=== PATIENT | female | born 1980 | race Caucasian/White ===

== ENCOUNTER 2018-06-27 20:57 | Emergency (ER) | payer MEDICAID, SELFPAY ==
[2018-06-27 21:07] VITALS: BP 157/107; PULSE 86; RESP 20; TEMP 36.3; O2SAT 96
--- NOTE | 2018-06-27 21:24 | ED.GENADUL_ITS ---
Discharge Plan Disposition Patient Disposition: HOME Condition: Stable Discharge Details Chief Complaint: Nk/Back Pain Clinical Impression: Contusion of upper back, Lumbar contusion, Contusion of right tibia Primary Care Provider: Zachary Lara ED Provider: Mo Brown Home Meds and New Rx's Prescriptions: New diazepam [Valium] 5 mg tablet 5 mg PO BID-TID PRN (Reason: muscle spasm) Qty: 20 RF: 0 No Action methocarbamol 500 mg Tablet 1,000 mg PO QID RF: 0 albuterol sulfate 1.25 mg/3 mL Solution For Nebulization 1.25 mg INHALATION QID PRNRF: 0 quetiapine [Seroquel] 200 mg Tablet 200 mg PO QHS RF: 0 omeprazole 40 mg Capsule,Delayed Release(Dr/Ec) 40 mg PO DAILY RF: 0 quetiapine [Seroquel] 100 mg Tablet 100 mg PO DAILY AM RF: 0 triamcinolone acetonide 0.025 % Cream 1 applic topical PRN PRNRF: 0 lorazepam [Ativan] 2 mg Tablet 2 mg PO BID RF: 0 furosemide 20 mg Tablet 10 mg PO DAILY RF: 0 albuterol sulfate [Ventolin HFA] 90 mcg/actuation Hfa Aerosol Inhaler 2 puff INHALATION QID PRNRF: 0 haloperidol 2 mg Tablet 2 mg PO BID RF: 0 hydroxyzine HCl 10 mg Tablet 10 mg PO TID-QID PRNRF: 0 Flovent HFA 110 mcg/actuation Hfa Aerosol Inhaler 2 puff INHALATION BID RF: 0 levalbuterol tartrate [Xopenex HFA] 45 mcg/actuation Hfa Aerosol Inhaler 2 inh INHALATION Q6H PRNRF: 0 levothyroxine 75 mcg Capsule 75 mcg PO DAILY RF: 0 Discharge Instructions Instructions: Lower Back Exercises (ED), Upper Back Exercises (GEN) Additional Instructions: if pain continues in a week follow up with your primary care provider Medical Decision Making 37 yo female comes in after a fall. She was getting into a pool when she states the railing broke and she hit her right leg and lower back on the stairs. She has upper back pain with pain with deep breaths, lower left lateral lumbar pain and left antior tib fib pain with no signs of trauma. She did not hit her head or have loc and no n/v since, no abdominal pain or anterior chest pain. She has no pain in c spine even on rom, no stepoffs or palpable deformities. She has full rom of the ankle and knee and normal sensation. I suspect contusions but will image to eval for fx. She has no saddle anesthesia or other findings to suggest spinal cord injury at this time. xrays negative, no new symptoms, suspect contusion, will d/c home Differential Diagnosis contusion, sprain, fx Imaging Data Radiologic Study: Attestation: I personally reviewed and interpreted this imaging study as follows: Imaging: X-Ray Radiologist's impression: no acute findings on chest xray Radiologic Study #2: Attestation: I personally reviewed and interpreted this imaging study as follows: Imaging: X-Ray Radiologist's impression: no acute findings on tib fib xray Radiologic Study #3: Attestation: I personally reviewed and interpreted this imaging study as follows: Imaging: X-Ray Radiologist's impression: no acute findings on lumbar xray HPI General Mode of arrival: ambulatory . Date/Time Provider Initiated Documentation: 06/27/18 21:03 . Limitations to Documentation: no limitations . Information obtained by: patient . History of Present Illness 37 year old F presents to the emergency department with the chief complaint of back and leg pain, described as moderate, with intensity rated at 5. Quality is described as aching, and is localized to the back, right and lower extremity. Patient reports no radiation. Patient started experiencing this hour(s) (1) and it has been constant. No relieving factors improve symptom(s), No exacerbating factors reported . Patient did receive the following treatments prior to arrival, none Related Data Home Medications Medication Instructions Recorded Confirmed albuterol sulfate 1.25 mg INHALATION QID PRN 06/27/18 06/27/18 albuterol sulfate [Ventolin HFA] 2 puff INHALATION QID PRN 06/27/18 06/27/18 diazepam [Valium] 5 mg PO BID-TID PRN #20 tab 06/27/18 fluticasone [Flovent HFA] 2 puff INHALATION BID 06/27/18 06/27/18 furosemide 10 mg PO DAILY 06/27/18 06/27/18 haloperidol 2 mg PO BID 06/27/18 06/27/18 hydroxyzine HCl 10 mg PO TID-QID PRN 06/27/18 06/27/18 levalbuterol tartrate [Xopenex HFA] 2 inh INHALATION Q6H PRN 06/27/18 06/27/18 levothyroxine 75 mcg PO DAILY 06/27/18 06/27/18 lorazepam [Ativan] 2 mg PO BID 06/27/18 06/27/18 methocarbamol 1,000 mg PO QID 06/27/18 06/27/18 omeprazole 40 mg PO DAILY 06/27/18 06/27/18 quetiapine [Seroquel] 100 mg PO DAILY AM 06/27/18 06/27/18 quetiapine [Seroquel] 200 mg PO QHS 06/27/18 06/27/18 triamcinolone acetonide 1 applic TOPICAL PRN PRN 06/27/18 06/27/18 Previous Rx's Medication Instructions Recorded diazepam [Valium] 5 mg PO BID-TID PRN #20 tab 06/27/18 Allergies Allergy/AdvReac Type Severity Reaction Status Date / Time codeine Allergy Severe Anaphylaxsi Unverified 06/27/18 21:13 s Penicillins Allergy Severe Anaphylaxsi Unverified 06/27/18 21:13 s cephalexin Allergy Swelling/Ed Unverified 06/27/18 21:13 moriah ketorolac [From Toradol] Allergy Anaphylaxsi Unverified 06/27/18 21:13 s NSAIDS (Non-Steroidal Allergy Hives Unverified 06/27/18 21:13 Anti-Inflamma aspirin AdvReac Nausea Unverified 06/27/18 21:13 morphine AdvReac Itching Unverified 06/27/18 21:13 rofecoxib [From Vioxx] AdvReac Cardiac Unverified 06/27/18 21:13 Dysrythmia tramadol AdvReac Itching Unverified 06/27/18 21:13 Review of Systems Review of Systems All systems reviewed & are unremarkable except as noted in HPI and below Constitutional Denies chills, Denies fever(s) and Denies weakness ENT Denies change in voice Cardiovascular Denies chest pain Respiratory Denies cough Gastrointestinal Denies abdominal pain, Denies nausea and Denies vomiting Musculoskeletal Denies joint swelling Neurologic Denies weakness Exam Const General: no acute distress Orientation: alert HENMT Head: normal to inspection Ears: external ears normal General nose exam: external nose normal Mouth: moist mucous membranes Eyes General: appearance normal, both eyes and all related structures Neck Neck: normal visual inspection Resp Effort & Inspection: normal respiratory effort and able to speak in complete sentences Cardio Rate: regular rate Skin General skin exam: no rashes or lesions noted Neuro General: alert and oriented x3 Extrem General: normal to inspection Psych Mental Status: mental status grossly normal
[2018-06-27] MEDS: Diazepam 5 MG TAB PO (21:29)
--- NOTE | 2018-06-27 21:55 | DI.RAD_ITS ---
SYMPTOM/DIAGNOSIS: FELL, PAIN LUMBAR SPINE: AP, lateral and bilateral oblique views of the lumbar spine. There are no priors for comparison. There are five lumbar type vertebral bodies. No acute fracture or subluxations are seen. No spondylosis or spondylolisthesis is present. IMPRESSION: No acute abnormality. PA AND LATERAL CHEST: No priors. The heart is normal in size. The lungs are clear. The mediastinal structures and pleura appear intact. CONCLUSION: Normal chest. RIGHT TIB-FIB: Multiple views. No acute fracture or dislocation is identified.
--- NOTE | 2018-06-27 22:09 | DI.VRAD_ITS ---
EXAM: XR Right Tibia and Fibula, 2 Views EXAM DATE/TIME: 06/27/2018 9:20 PM CLINICAL HISTORY: 37 years old, female; Pain; Lower leg; Right; Patient HX: Fell getting out of pool. Pain and bruising anterior mid to lower leg TECHNIQUE: XR Right tibia and fibula 2 views COMPARISON: No relevant prior studies available. FINDINGS: Bones/joints: Typical for age. No evidence of acute fracture. Soft tissues: Unremarkable. IMPRESSION: No acute findings. Dictated and Authenticated by: Clark Keating MD. Ordering:BRAYDEN Hassan MD
--- NOTE | 2018-06-27 22:10 | DI.VRAD_ITS ---
EXAM: XR Chest, 2 Views EXAM DATE/TIME: 06/27/2018 10:00 PM CLINICAL HISTORY: 37 years old, female; Signs and symptoms; Other: Pain with breathing and back pain after fall; Patient HX: Fell getting out of pool, hit lower back tailbone and pain with breathing TECHNIQUE: XR of the chest, 2 views. COMPARISON: No relevant prior studies available. FINDINGS: Lungs: Unremarkable. No consolidation. Pleural space: Unremarkable. No evidence of pneumothorax. Heart/Mediastinum: Unremarkable. Heart size within normal limits for technique. Bones/joints: Unremarkable. IMPRESSION: No acute findings. Dictated and Authenticated by: Clark Keating MD. Ordering:BRAYDEN Hassan MD
--- NOTE | 2018-06-27 22:12 | DI.VRAD_ITS ---
EXAM: XR Lumbar Spine, 4 or 5 Views EXAM DATE/TIME: 06/27/2018 10:00 PM CLINICAL HISTORY: 37 years old, female; Pain; Low back pain; Patient HX: Fell getting out of pool. Low back pain and pain above tailbone TECHNIQUE: XR of the lumbar spine, 4 or 5 views. COMPARISON: No relevant prior studies available. FINDINGS: Vertebrae: Unremarkable for age. No acute fracture. Normal alignment. Vertebral Body Heights preserved. Soft tissues: Unremarkable. IMPRESSION: Unremarkable radiograph. Dictated and Authenticated by: Clark Keating MD. Ordering:BRAYDEN Hassan MD
== END 2018-06-27 23:00 | disposition home or self-care (01) ==
LOC: ER 23:16
PROVIDERS: Emergency Provider Emergency Medicine; PCP Family Medicine
DX: S20.221A Contusion of right back wall of thorax, initial encounter (principal); S30.0XXA Contusion of lower back and pelvis, initial encounter; W10.8XXA Fall (on) (from) other stairs and steps, initial encounter
CPT/HCPCS: 99284; 71046; 72110; 73590

== ENCOUNTER 2020-10-24 14:39 | Emergency (ER) | payer MEDICAID, SELFPAY ==
--- NOTE | 2020-10-24 14:54 | ED.GENADUL_ITS ---
Discharge Plan Disposition Patient Disposition: HOME Condition: Stable Discharge Details Clinical Impression: Acute sinusitis Primary Care Provider: Zachary Lara ED Provider: Lisa Pugh Home Meds and New Rx's Prescriptions: New doxycycline hyclate 100 mg tablet 100 mg PO BID 7 Days Qty: 14 RF: 0 methylprednisolone [Medrol (Ashu)] 4 mg tablets,dose pack See Rx Instructions .ROUTE .COMPLEX 7 Days RF: 0 Continued methocarbamol 500 mg Tablet 1,000 mg PO QID RF: 0 albuterol sulfate 1.25 mg/3 mL Solution For Nebulization 1.25 mg INHALATION QID PRNRF: 0 quetiapine [Seroquel] 200 mg Tablet 200 mg PO QHS RF: 0 omeprazole 40 mg Capsule,Delayed Release(Dr/Ec) 40 mg PO DAILY RF: 0 quetiapine [Seroquel] 100 mg Tablet 100 mg PO DAILY AM RF: 0 triamcinolone acetonide 0.025 % Cream 1 applic topical PRN PRNRF: 0 lorazepam [Ativan] 2 mg Tablet 2 mg PO BID RF: 0 furosemide 20 mg Tablet 10 mg PO DAILY RF: 0 albuterol sulfate [Ventolin HFA] 90 mcg/actuation Hfa Aerosol Inhaler 2 puff INHALATION QID PRNRF: 0 haloperidol 2 mg Tablet 2 mg PO BID RF: 0 hydroxyzine HCl 10 mg Tablet 10 mg PO TID-QID PRNRF: 0 Flovent HFA 110 mcg/actuation Hfa Aerosol Inhaler 2 puff INHALATION BID RF: 0 levalbuterol tartrate [Xopenex HFA] 45 mcg/actuation Hfa Aerosol Inhaler 2 inh INHALATION Q6H PRNRF: 0 levothyroxine 75 mcg Capsule 75 mcg PO DAILY RF: 0 diazepam [Valium] 5 mg tablet 5 mg PO BID-TID PRN (Reason: muscle spasm) Qty: 20 RF: 0 No Action ondansetron 4 mg Tablet,Disintegrating 4 mg PO PRN PRNRF: 0 triamcinolone-dimethicone 0.1-5 % Kit,Ointment And Cream 1 ea TOPICAL PRN PRNRF: 0 Discharge Instructions Instructions: Sinusitis (ED) Additional Instructions: Drink plenty of fluids and get plenty of rest. Alternate tylenol and motrin as needed and directed for pain. Take the antibiotics and steroids as directed until finished. Follow-up with your primary care doctor in 1 week. Return to the emergency department with any worsening or new concerning symptoms. Discharge Data Discharge Date/Time-TO BE ENTERED AT DEPARTURE: 10/24/20 16:48 Discharge Physician: Lisa Pugh Medical Decision Making 40-year-old female with multiple medical problems including PTSD, anxiety and depression on multiple psychiatric medications and chronic back pain on oxycodone presents with 10 days of sinus pain and pressure, green nasal discharge, fever. She also has mild ear pain and sore throat that's now improving. She appears comfortable and nontoxic. Vitals are within normal limits. Bilater al TMs dull. Oropharynx appears erythematous but no exudates. She has sinus tenderness throughout. Lungs clear. Appears most likely consistent with acute sinusitis. As she is a smoker and has complaint of fever with green nasal discharge, will cover for bacterial sinusitis with antibiotics. She requests a paper prescription which was given in addition to Medrol Dosepak. Advised to follow up with the primary care doctor for re-evaluation. Usual and customary return precautions given prior to discharge. Medical Records Medical records reviewed: Yes I reviewed the patient's medical records. HPI General Mode of arrival: ambulatory . Date/Time Provider Initiated Documentation: 10/24/20 14:40 . Limitations to Documentation: no limitations . Information obtained by: patient . HPI Narrative: Patient is a 40-year-old female with multiple medical problems including PTSD, anxiety and depression on Valium, Haldol, Ativan and Seroquel and a history of chronic back pain on oxycodone presents to the ED with a complaint of nasal congestion and runny nose, facial pain, sore throat and intermittent fevers for the past 10 days. She states her symptoms started after being exposed to another child with a cold 2 weeks ago. She states her symptoms initially started with ear pain and sore throat and now has concentrated in her sinuses. She states she has occasional clear or yellow nasal discharge. She states her ear pain and sore throat has improved. She states she had a temperature of 102 a few days ago but not since then. She denies any cough, chest pain, breath, neck pain. She states she has taken Mucinex and ibuprofen and Tylenol without relief. She states she takes children's ibuprofen and Tylenol due to concern for stomach upset and medication interactions. Related Data Home Medications Medication Instructions Recorded Confirmed Flovent HFA 2 puff INHALATION BID 06/27/18 10/24/20 albuterol sulfate 1.25 mg INHALATION QID PRN 06/27/18 10/24/20 albuterol sulfate [Ventolin HFA] 2 puff INHALATION QID PRN 06/27/18 10/24/20 diazepam [Valium] 5 mg PO BID-TID PRN #20 tab 06/27/18 10/24/20 furosemide 10 mg PO DAILY 06/27/18 10/24/20 haloperidol 2 mg PO BID 06/27/18 10/24/20 hydroxyzine HCl 10 mg PO TID-QID PRN 06/27/18 10/24/20 levalbuterol tartrate [Xopenex HFA] 2 inh INHALATION Q6H PRN 06/27/18 10/24/20 levothyroxine 75 mcg PO DAILY 06/27/18 10/24/20 lorazepam [Ativan] 2 mg PO BID 06/27/18 10/24/20 methocarbamol 1,000 mg PO QID 06/27/18 10/24/20 omeprazole 40 mg PO DAILY 06/27/18 10/24/20 quetiapine [Seroquel] 100 mg PO DAILY AM 06/27/18 10/24/20 quetiapine [Seroquel] 200 mg PO QHS 06/27/18 10/24/20 triamcinolone acetonide 1 applic TOPICAL PRN PRN 06/27/18 10/24/20 doxycycline hyclate 100 mg PO BID 7 Days #14 tab 10/24/20 methylprednisolone [Medrol (Ashu)] See Rx Instructions .ROUTE 10/24/20 .COMPLEX 7 Days dose pk ondansetron 4 mg PO PRN PRN 10/24/20 10/24/20 triamcinolone-dimethicone 1 ea TOPICAL PRN PRN 10/24/20 10/24/20 Previous Rx's Medication Instructions Recorded diazepam [Valium] 5 mg PO BID-TID PRN #20 tab 06/27/18 doxycycline hyclate 100 mg PO BID 7 Days #14 tab 10/24/20 methylprednisolone [Medrol (Ashu)] See Rx Instructions .ROUTE 10/24/20 .COMPLEX 7 Days dose pk Allergies Allergy/AdvReac Type Severity Reaction Status Date / Time codeine Allergy Severe Anaphylaxsi Unverified 06/27/18 21:13 s Penicillins Allergy Severe Anaphylaxsi Unverified 06/27/18 21:13 s cephalexin Allergy Swelling/Ed Unverified 06/27/18 21:13 moriah ketorolac [From Toradol] Allergy Anaphylaxsi Unverified 06/27/18 21:13 s NSAIDS (Non-Steroidal Allergy Hives Unverified 06/27/18 21:13 Anti-Inflamma acetaminophen [From NyQuil] AdvReac Unverified 10/24/20 16:11 amoxicillin AdvReac Unverified 10/24/20 16:11 aspirin AdvReac Nausea Unverified 06/27/18 21:13 ciprofloxacin [From Cipro] AdvReac Unverified 10/24/20 16:11 clindamycin AdvReac Unverified 10/24/20 16:11 dextromethorphan AdvReac Unverified 10/24/20 16:11 [From NyQuil] doxylamine [From NyQuil] AdvReac Unverified 10/24/20 16:11 latex AdvReac Unverified 10/24/20 16:11 morphine AdvReac Itching Unverified 06/27/18 21:13 pseudoephedrine [From NyQuil] AdvReac Unverified 10/24/20 16:11 rofecoxib [From Vioxx] AdvReac Cardiac Unverified 06/27/18 21:13 Dysrythmia Sulfa (Sulfonamide AdvReac Unverified 10/24/20 16:11 Antibiotics) tramadol AdvReac Itching Unverified 06/27/18 21:13 General Stated Complaint: RespSymp RUDDY: 4 Review of Systems All systems reviewed & are unremarkable except as noted in HPI and below Constitutional Constitutional: Reports as per HPI, Denies chills and Denies fever(s) Eyes Eyes: Denies blurry vision ENT Ears, Nose, Mouth, and Throat: Denies dizziness, Reports nasal congestion, Reports nasal discharge, Reports sinus pain, Reports sinus pressure, Reports sore throat and Denies throat swelling Cardiovascular Cardiovascular: Denies chest pain and Denies dyspnea Respiratory Respiratory: Denies cough and Denies dyspnea Gastrointestinal Gastrointestinal: Denies abdominal pain, Denies diarrhea and Denies vomiting Genitourinary Genitourinary: Denies hematuria and Denies dysuria Musculoskeletal Musculoskeletal: Denies back pain and Denies numbness Integumentary/Breasts Skin/Breast: Denies lesions and Denies rash Neurologic Neurologic: Denies dizziness, Denies localized weakness and Denies numbness Allergic/Immunologic Allergic/Immunologic: Denies throat swelling PFS Medical History (Updated 10/24/20 @ 16:14 by Lisa Pugh DO) Anxiety Chronic back pain Depression PTSD (post-traumatic stress disorder) Surgical History (Updated 10/24/20 @ 15:35 by Lisa Pugh DO) History of carpal tunnel release History of hysterectomy Social History Smoking/Tobacco Use Status: Never Smoking risk assessment performed?: Yes Alcohol Intake: never Drug use: Never Do you feel safe at home: Yes Exam Const General: cooperative and no acute distress HENMT Head: normal to inspection Ears: hearing grossly normal bilaterally, external ears normal and TM abnormal dull bilaterally Face and sinus: normal facial exam and sinus tenderness frontal (left) and maxillary (b/l ) Mouth: oral mucosae normal Throat: uvula midline, no peritonsillar masses and posterior oropharynx abnormal erythema; no exudates Eyes General: appearance normal, both eyes and all related structures EOM: EOM intact bilaterally Neck Neck: normal visual inspection and No submandibular swelling Lymphatic: no lymphadenopathy noted Chest Chest: normal inspection of the chest and no tenderness Resp Effort & Inspection: normal respiratory effort and able to speak in complete sentences Auscultation: clear to auscultation bilaterally Cardio Rate: regular rate Rhythm: regular rhythm GI Inspection: normal to inspection Palpation: soft, not firm, not rigid and nontender Auscultation: normal bowel sounds Skin General skin exam: no rashes or lesions noted Neuro General: patient alert, patient awake, patient oriented x3, moves all extremities, no meningeal signs and no focal motor deficits Cognition: normal cognition Speech: speech normal Motor: muscle tone normal throughout Sensory Exam: no sensory deficits noted Extrem General: normal to inspection, full ROM, capillary refill normal, no calf te nderness bilaterally and no edema Psych Appearance: grossly normal Mental Status: mental status grossly normal Speech and Movement: speech and movement normal Affect: normal affect
[2020-10-24 15:00] VITALS: BP 131/88; PULSE 71; RESP 16; TEMP 37; O2SAT 95
[2020-10-24] MEDS: Doxycycline Hyclate 100 MG CAP PO (15:48)
== END 2020-10-24 16:48 | disposition home or self-care (01) ==
PROVIDERS: Emergency Provider Physician Assistant; PCP Family Medicine
DX: J01.80 Other acute sinusitis (principal)
CPT/HCPCS: 99283